=== PATIENT | male | born 1945 | race Hispanic/Latino ===

== ENCOUNTER → 2020-06-14 | Day surgery (SDC) | payer MEDICARE, OTHER ==
[~2020-06-14] MED LIST: CELEBREX100 MG PO; ENBREL50 MG/1 ML SC; FENTANYL CITRATE/PF 100MCG/2 ML INJ ONE; MIDAZOLAM HCL 2 MG/2 ML VIAL ONE; OMEPRAZOLE40 MG; OR PHACO EYE KIT ONE; PREOP PHACO EYE KIT ONE; VITAMIN B-121000 MCG PO; folic acid
[2020-06-14 15:23] VITALS: BP 170/83
== END | disposition home or self-care (01) ==
LOC: OR 08:36
PROVIDERS: ATTEND Ophthalmology
DX: H25.11 Age-related nuclear cataract, right eye (principal); M06.9 Rheumatoid arthritis, unspecified; Z01.812 Encounter for preprocedural laboratory examination; Z20.828 Contact with and (suspected) exposure to other viral communicable diseases
CPT/HCPCS: 66984; U0002; V2632; J2250; J3010

== ENCOUNTER → 2020-06-29 | Day surgery (SDC) | payer MEDICARE, OTHER ==
[~2020-06-29] MED LIST changes: -FENTANYL CITRATE/PF 100MCG/2 ML INJ ONE; +GLYCOPYRROLATE INJ 0.2 MG/ML VIAL ONE; -MIDAZOLAM HCL 2 MG/2 ML VIAL ONE
[2020-06-29 15:50] VITALS: BP 156/83
== END | disposition home or self-care (01) ==
LOC: OR 11:53
PROVIDERS: ATTEND Ophthalmology
DX: H25.12 Age-related nuclear cataract, left eye (principal); M19.90 Unspecified osteoarthritis, unspecified site; M06.9 Rheumatoid arthritis, unspecified; H91.90 Unspecified hearing loss, unspecified ear; Z01.812 Encounter for preprocedural laboratory examination; Z20.828 Contact with and (suspected) exposure to other viral communicable diseases
CPT/HCPCS: 66984; U0002; V2632